=== PATIENT | male | born 1995 | race Caucasian/White ===

== ENCOUNTER → 2023-12-19 07:29 | Outpatient (REF) | payer OTHER, SELFPAY | LOC: EMG 07:29 | PROVIDERS: ATTENDING PHYSICIAN Family Medicine | DX: R20.0 Anesthesia of skin (principal) | CPT/HCPCS: 95886; 95910 ==

== ENCOUNTER 2025-04-16 18:37 | Emergency (ER) | payer OTHER, SELFPAY ==
[2025-04-16 18:40] VITALS: BP 128/87
[2025-04-16 19:01] LABS: Hematocrit 45.2 % (39.0-52.0); Hemoglobin 16.1 g/dL (13.0-18.0); Mean Corp Hgb Conc. 35.6 g/dL (33.0-37.0); Mean Corpuscular Volume 86.4 fL (80.0-94.0); Nucleated Red Blood Cells % 0 % (-); Platelet Count 303 10^3/uL (130-400); Red Cell Dist. Width 11.4 % (11.5-14.5)
[2025-04-16 19:07] VITALS: BMI 21.0
[2025-04-16 19:22] LABS: Blood Urea Nitrogen 14 mg/dl (9-20); Calcium 10.0 mg/dl (8.4-10.2); Carbon Dioxide 29 mmol/L (22-30); Chloride 97 mmol/L (98-107); Estimated Creatinine Clearance 119 ml/min; Glucose 111 mg/dl (70-99); Potassium 4.5 mmol/L (3.5-5.1); Sodium 135 mmol/L (135-145); eGFR > 60.00
--- NOTE | 2025-04-16 19:32 | ED.GENMED ---
History of Present Illness
General
Chief Complaint: Crisis Evaluation
Source: patient
Exam Limitations: none
Time Seen by Provider: 04/16/25 19:08
History of Present Illness
History of Present Illness:
29-year-old male 3 kids Works for [employer] presents with anxiety depression thoughts of harming himself states he has been under a lot of stress due to the holidays denies drugs or alcohol, no overdose,
Past History
Past History
ED Past Medical History: None
ED Past Surgical History: None
Social History
Tobacco: Non-smoker
Alcohol: None
Drug: None
Personal:
Living: with family
Employment: Employed
Review of Systems
Review of Systems
All Other Systems: Not applicable
Constitutional: Reports sleep disturbance
Psychiatric: Reports depression, anxiety and suicidal; Denies hallucinations
Phy Exam
Physical Exam
Physical Exam:
Physical Exam
General: 29-year-old male cooperative flat affect
Neck: No jaundice
Heart: Regular
Lungs: no acute respiratory distress.
Neuro: alert and oriented. no focal neurological deficits
Skin: no rash
Psychiatric: Cooperative mixed anxiety depression suicidal thoughts
Extremities: no edema.
Course
Orders/Labs/Results
Orders:
Orders
04/16/25 18:44
1:1 Observation - Suicide/ Violent Behavior As Directed
Crisis Consult Urgent
Reason for Consult: suicidal ideation
04/16/25 18:54
Alcohol Urgent
Basic Metabolic Panel Urgent
Complete Blood Count/With Diff Urgent
04/16/25 21:03
Chlamydia/GC by PCR Urgent
LEON Source: Urine
Specimen Description:
Source:: URINE
Abnormal Lab Results
04/16/25
18:54
RDW 11.4 L %
(11.5-14.5)
Chloride 97 L mmol/L
(98-107)
Glucose 111 H mg/dl
(70-99)
04/16/25 18:54
04/16/25 18:54
Vital Signs
Initial and Last Documented VS:
Initial Vital Signs
Pulse Resp BP Pulse Ox
83 20 128/87 99
04/16/25 18:40 04/16/25 18:40 04/16/25 18:40 04/16/25 18:40
Last Documented Vital Signs
Pulse Resp BP Pulse Ox
83 17 128/87 99
04/16/25 18:40 04/16/25 20:38 04/16/25 18:40 04/16/25 19:33
MDM/Problems Addressed
Differential Diagnosis Includes:
Depression anxiety suicidal ideation
MDM/Problems Addressed:
Depression anxiety suicidal ideation
*Pulse Oximetry
SaO2: 99
Oxygen Mode of Delivery: Room air
Patient hypoxic: no
*Critical Care Note
Total Time (30-74mins, 75-104mins- exclusive of procedures): Not Applicable
Update Note
Update Note:
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
sex at a massage parlor, no discharge
ED Attending Note
-
Portions of this chart may have been created with voice recognition software.� Occasional wrong word or��sound alike� substitutions may have occurred due to the inherent limitations of voice recognition software.
Discharge Plan
Departure
Patient Disposition: Home (Routine Discharge)
Date of Disposition: 04/16/25
Time of Disposition: 21:14
Patient with high blood pressure during this ER visit?: No
Condition: Good
Discharge Problem:
Anxiety
Instructions: Anxiety, Adult (DC), Depression, Adult (DC)
Prescriptions:
No Action
tramadol-acetaminophen 1 EACH tablet
1 ea PO Q6HPRN Qty: 12 0RF
Referrals:
Taye Sharma DO [Family Provider, Family Practice]
Interventions
Interventions:
*General Assessment Last Done: 04/16/25 18:40
*Neglect/Abuse Screening Last Done: 04/16/25 18:40
*ED COVID-19 Vaccine History Last Done: 04/16/25 19:07
*ED Influenza Vaccine History Last Done: 04/16/25 19:07
[facility] Risk Assessment Tool Last Done: 04/16/25 19:07
*Risk Screen - Suicide (C-SSRS) Last Done: 04/16/25 18:40
ED-Psychological Assessment Last Done: 04/16/25 19:07
Discharge Date and Time
Print Language: BELARUSIAN
== END 2025-04-16 21:24 | disposition home or self-care (01) ==
LOC: EMR 18:37
PROVIDERS: Student in an Organized Health Care Education/Training Program; EMERGENCY PHYSICIAN Emergency Medicine; FAMILY PHYSICIAN Family Medicine
DX: F41.8 Other specified anxiety disorders (principal); R45.851 Suicidal ideations
CPT/HCPCS: 99285; 80048; 82077; 85025; 87491; 87591